=== PATIENT | female | born 1990 | race Caucasian/White ===

== ENCOUNTER 2019-03-14 08:00 | Emergency (ER) | payer MEDICAID ==
[~2019-03-14] VITALS: Ht 167.6 cm; Wt 63.5 kg
[2019-03-14 08:13] VITALS: BP_SYST 138
--- NOTE | 2019-03-14 08:22 | NUR ---
PATIENT TO ER #8 AND PLACED ON [employer] TENDER ASSISTANT AND SAO2 AT 0810; PATIENT WAS WEAK AND LYING ON GROUND TODAY AT 0730 WHEN SHE DROPPED OFF SON AT SCHOOL; 911 WAS CALLED BY SCHOOL STAFF AND PATIENT BROUGHT TO ER ACLS; PATIENT STATED HER FEET HAVE BEEN HURTING FOR FOUR DAYS AND HAS VERY LIMITED THAI (BULGARIAN); INFORMED AND IS ENROUTE; NO TRAUMA, NO OTHER REMARKABLE S/S
--- NOTE | 2019-03-14 08:23 | NUR ---
Patient BIB [facility] for anxiety and bilat foot pain. Patient alert & oriented, thai speaking,patient C/O "pain every where", patient denies N/V/D, unable to asses pain severity. Per [employer] patient was BIB BLS from a [employer], patient was dropping son off at school, staff at school called 911 for patient laying on ground c/o foot pain.
--- NOTE | 2019-03-14 08:25 | NUR ---
Translation phone brought to bedside, telephone not working at this time.
--- NOTE | 2019-03-14 08:40 | NUR ---
ER Dr. Desai at bedside examining patient.
--- NOTE | 2019-03-14 10:45 | NUR ---
Language phone working via alternate phone beny and extention cord to phone.
--- NOTE | 2019-03-14 10:55 | NUR ---
of patient at bedside
--- NOTE | 2019-03-14 11:00 | NUR ---
ER Dr. Desai at bedside examining patient.
[2019-03-14] MEDS ORDERED: LORazepam 1 MG TABLET PO ONE (11:15)
[2019-03-14 11:55] VITALS: BP_SYST 136
--- NOTE | 2019-03-14 11:55 | NUR ---
Patient given written and verbal discharge instructions and verbalizes understanding. ER MD discussed with patient the results and treatment provided. Patient in stable condition. ID arm band removed. No Rx given. Patient educated on pain management and to follow up with PMD. Pain Scale 0/10. Opportunity for questions provided and answered. Medication side effect fact sheet provided.
== END 2019-03-14 11:55 | disposition home or self-care (01) ==
LOC: SED 08:00
DX: F20.9 Schizophrenia, unspecified (principal)
CPT/HCPCS: 81025; 99283